=== PATIENT | female | born 1975 | race Caucasian/White ===

== ENCOUNTER 2022-05-09 20:18 | Emergency (ER) | payer OTHER, BC ==
[~2022-05-09] VITALS: Ht 147.3 cm; Wt 66.7 kg
[2022-05-09 20:31] VITALS: BP 159/79
--- NOTE | 2022-05-09 20:38 | NUR ---
pt to lobby, urine specimen collected.
--- NOTE | 2022-05-09 23:58 | NUR ---
PT TO [facility]
[2022-05-10] MEDS ORDERED: ONDANSETRON 4 MG ODT PO ONE (00:05)
[2022-05-10] MEDS ORDERED: KETOROLAC 30 MG/ML VIAL IM ONE (00:05)
--- NOTE | 2022-05-10 00:06 | NUR ---
pt reports 10/10 headache with no nausea. no additonal episodes of vomitting. bp 174/99, Dr. Diaz notified.
--- NOTE | 2022-05-10 00:10 | NUR ---
Patient being evaluated by physician at bedside.
[2022-05-10] MEDS ORDERED: DIAZ5TAB6 PO (00:22)
[2022-05-10] MEDS ORDERED: NAPR-54 PO (00:22)
--- NOTE | 2022-05-10 00:39 | NUR ---
BP REASSESSED 134/80. AWARE
--- NOTE | 2022-05-10 00:40 | NUR ---
Patient discharged with v/s stable. Written and verbal after care instructions given HEAD INJURY and explained. Patient alert, oriented and verbalized understanding of instructions. Ambulatory with steady gait. All questions addressed prior to discharge. ID band removed. Patient advised to follow up with PMD. Rx of DIAZEPAM, NAPROXEN given.
[2022-05-10 00:41] VITALS: BP 134/80
== END 2022-05-10 00:40 | disposition home or self-care (01) ==
LOC: MED 20:18
DX: S09.90XA Unspecified injury of head, initial encounter (principal); G43.909 Migraine, unspecified, not intractable, without status migrainosus; Z98.890 Other specified postprocedural states; X58.XXXA Exposure to other specified factors, initial encounter; Y93.89 Activity, other specified; Y92.89 Other specified places as the place of occurrence of the external cause; Y99.8 Other external cause status
CPT/HCPCS: 70450; 96372; 99284; J1885; Q0162

== ENCOUNTER 2023-02-23 03:35 | Emergency (ER) | payer BC, OTHER ==
[~2023-02-23] VITALS: Ht 147.3 cm; Wt 64.4 kg
[~2023-02-23 03:35] MED LIST: DIAZ5TAB6 PO; NAPR-54 PO
[2023-02-23 04:06] VITALS: BP 147/96; PULSE 78; RESP 14; TEMP 99; O2SAT 96
--- NOTE | 2023-02-23 04:08 | NUR ---
pt to bed 04 ambulatory
--- NOTE | 2023-02-23 04:11 | NUR ---
Dr. Carpenter examining patient.
--- NOTE | 2023-02-23 04:15 | NUR ---
Dr. Carpenter at evaluating pt. informed the pt and her that he would be ordered medication for her pain and vomiting. Will medicate as ordered.
[2023-02-23] MEDS ORDERED: diphenhydrAMINE 50 MG/ML VIAL IVP ONE (04:20)
[2023-02-23] MEDS ORDERED: PROCHLORPERAZINE 10 MG/2 ML VIAL IVP ONE (04:20)
[2023-02-23] MEDS ORDERED: KETOROLAC 15 MG/ML VIAL IVP ONE (04:20)
[2023-02-23] MEDS ORDERED: ACETAMINOPHEN EXTRA STRENGTH 500 MG TAB PO ONE (04:20)
--- NOTE | 2023-02-23 05:13 | NUR ---
PT sleeping without distress. Respirations even and unlabored. at BS.
--- NOTE | 2023-02-23 05:20 | NUR ---
MD. Carpenter at re-evaluated pt's status.
[2023-02-23] MEDS ORDERED: HYDR25CA1 PO (05:22)
[2023-02-23] MEDS ORDERED: ACET-8001 PO (05:22)
[2023-02-23 05:30] VITALS: BP 132/64; PULSE 83; RESP 21; TEMP 98.2; O2SAT 98
--- NOTE | 2023-02-23 05:30 | NUR ---
Patient discharged with v/s stable. Written and verbal after care instructions given and explained. Patient alert, oriented and verbalized understanding of instructions. Ambulatory with steady gait. All questions addressed prior to discharge. ID band removed. Patient advised to follow up with PMD. Rx of ASA, and Vistaril given. Patient educated on indication of medication including possible reaction and side effects. Opportunity to ask questions provided and answered. Pt instructed to return if condition worsens or to call 911 for an Emergency.
--- NOTE | 2023-02-23 06:17 | NUR ---
Note undone in EDM - 02/23/23 at 0620 by [facility] Patient discharged with v/s stable. Written and verbal after care instructions given and explained. Patient alert, oriented and verbalized understanding of instructions. Ambulatory with steady gait. All questions addressed prior to discharge. ID band removed. Patient advised to follow up with PMD. Rx of ASA, and Vistaril given. Patient educated on indication of medication including possible reaction and side effects. Opportunity to ask questions provided and answered. Pt instructed to return if condition worsens or to call 911 for an Emergency.
== END 2023-02-23 05:30 | disposition home or self-care (01) ==
LOC: MED 03:35
DX: G43.909 Migraine, unspecified, not intractable, without status migrainosus (principal); Z79.899 Other long term (current) drug therapy
CPT/HCPCS: 96374; 96375; 99284; J0780; J1200; J1885

== ENCOUNTER 2023-02-25 09:35 | Emergency (ER) | payer BC, OTHER ==
[~2023-02-25] VITALS: Ht 162.6 cm; Wt 81.6 kg
[~2023-02-25 09:35] MED LIST changes: +ACET-8001 PO; +HYDR25CA1 PO
[2023-02-25 10:00] VITALS: BP 149/100; PULSE 102; RESP 18; TEMP 98; O2SAT 98
[2023-02-25] MEDS ORDERED: NACL 0.9% 1,000 ML IV ONE (10:05)
[2023-02-25] MEDS ORDERED: diphenhydrAMINE 50 MG/ML VIAL IVP ONE (10:05)
[2023-02-25] MEDS ORDERED: PROCHLORPERAZINE 10 MG/2 ML VIAL IVP ONE (10:05)
[2023-02-25] MEDS ORDERED: ACETAMINOPHEN EXTRA STRENGTH 500 MG TAB PO ONE (10:05)
--- NOTE | 2023-02-25 10:13 | NUR ---
47 YO F PRESENTS W/HILL, NAUSEA, VOMITING, CHILLS SINCE LAST NIGHT, PT STATES SHE WAS SEEN HERE IN ED LAST MONDAY. PT DENIES INJURY. AOX4, NAD, HOB ELEVATED, SAFETY MAINTAINED. HX:MIGRAINE NKA
--- NOTE | 2023-02-25 10:14 | NUR ---
PT IN CT
--- NOTE | 2023-02-25 10:17 | NUR ---
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
[2023-02-25 10:18] VITALS: O2SAT 98
[2023-02-25] MEDS ORDERED: KETOROLAC 15 MG/ML VIAL IVP ONE (10:55)
--- NOTE | 2023-02-25 10:58 | NUR ---
SWABBED FOR ANTOINE AND FLU, WALKED TO LAB
[2023-02-25 11:02] LABS: BASOPHILS # (AUTO) 0.1 K/uL (0.00-0.22); BASOPHILS % (AUTO) 0.5 % (0.0-2.0); HEMATOCRIT 43.3 % (36-48); HEMOGLOBIN 14.9 g/dL (12.0-16.0); LYMPHOCYTES # (AUTO) 0.9 K/uL (2.5-16.5); MEAN CORPUSCULAR HEMOGLOBIN 30 pg (27-31); MEAN CORPUSCULAR HGB CONC 34 g/dL (33-37); MEAN CORPUSCULAR VOLUME 87.5 fL (80-94); MONOCYTES # (AUTO) 0.3 K/uL (0.8-1.0); MONOCYTES % (AUTO) 2.7 % (1.7-9.3); NEUTROPHILS # (AUTO) 9.1 K/uL (1.8-7.7); NEUTROPHILS % (AUTO) 87.8 % (42.2-75.2); PLATELET COUNT (AUTO) 324 K/uL (140-450); RED BLOOD CELL COUNT(AUTO) 4.95 MIL/uL (4.20-5.40); RED CELL DISTRIBUTION WIDTH 13.4 % (11.6-13.7); WHITE BLOOD COUNT (AUTO) 10.4 K/uL (4.8-10.8)
[2023-02-25] MEDS ORDERED: NIFEdipine 30 MG TABER PO ONE (11:20)
[2023-02-25] MEDS ORDERED: lisinopriL 20 MG TAB PO ONE (11:20)
[2023-02-25 11:38] LABS: ALBUMIN 4.2 g/dL (3.4-5.0); ANION GAP 14.7 (8-16); CARBON DIOXIDE 26.7 mmol/L (21-32); CREATININE 0.7 mg/dL (0.6-1.3); MAGNESIUM 2.3 mg/dL (1.8-2.4); POTASSIUM 3.4 mmol/L (3.5-5.1); THYROID STIMULATING HORMONE 0.24 uIU/mL (0.34-3.74); TOTAL BILIRUBIN 0.6 mg/dL (0.0-1.0)
[2023-02-25] MEDS ORDERED: ONDA-188 PO (12:45)
[2023-02-25] MEDS ORDERED: IBUP-1842 PO (12:45)
[2023-02-25] MEDS ORDERED: AMLO-271 PO (12:45)
== END 2023-02-25 13:00 | disposition home or self-care (01) ==
LOC: MED 09:35
DX: G43.909 Migraine, unspecified, not intractable, without status migrainosus (principal); Z20.822 Contact with and (suspected) exposure to COVID-19; I10 Essential (primary) hypertension; Z79.899 Other long term (current) drug therapy
CPT/HCPCS: 36415; 70450; 80053; 81025; 83735; 84439; 84443; 85025; 87426; 87804; 96361; 96374; 96375; 99285; J0780; J1200; J1885; J7030

== ENCOUNTER 2023-08-27 17:07 | Emergency (ER) | payer BC, OTHER ==
[~2023-08-27] VITALS: Ht 147.3 cm; Wt 63.5 kg
[~2023-08-27 17:07] MED LIST changes: +AMLO-271 PO; +IBUP-1842 PO; +ONDA-188 PO
[2023-08-27 17:15] VITALS: BP 159/102; PULSE 110; RESP 18; TEMP 98.5; O2SAT 98
[2023-08-27 17:44] VITALS: O2SAT 98
[2023-08-27] MEDS ORDERED: KETOROLAC 30 MG/ML VIAL IM ONE (17:55)
[2023-08-27] MEDS ORDERED: NACL 0.9% 1,000 ML IV ONE (17:55)
[2023-08-27 18:18] LABS: BASOPHILS # (AUTO) 0.2 K/uL (0.00-0.22); BASOPHILS % (AUTO) 1.4 % (0.0-2.0); EOSINOPHILS # (AUTO) 0.4 K/uL (0-0.4); EOSINOPHILS % (AUTO) 3.5 % (0.0-4.0); HEMATOCRIT 44.7 % (36-48); HEMOGLOBIN 15.3 g/dL (12.0-16.0); LYMPHOCYTES # (AUTO) 2.5 K/uL (2.5-16.5); LYMPHOCYTES % (AUTO) 20.4 % (20.5-51.1); MEAN CORPUSCULAR HEMOGLOBIN 30 pg (27-31); MEAN CORPUSCULAR HGB CONC 34 g/dL (33-37); MEAN CORPUSCULAR VOLUME 87.6 fL (80-94); MONOCYTES # (AUTO) 0.6 K/uL (0.8-1.0); MONOCYTES % (AUTO) 4.6 % (1.7-9.3); NEUTROPHILS # (AUTO) 8.6 K/uL (1.8-7.7); NEUTROPHILS % (AUTO) 70.1 % (42.2-75.2); PLATELET COUNT (AUTO) 276 K/uL (140-450); RED CELL DISTRIBUTION WIDTH 13.4 % (11.6-13.7); WHITE BLOOD COUNT (AUTO) 12.3 K/uL (4.8-10.8)
[2023-08-27] MEDS ORDERED: ONDANSETRON 4 MG/2 ML VIAL IVP ONE (18:20)
[2023-08-27 19:03] LABS: ANION GAP 14.9 (8-16); CALCIUM 9.1 mg/dL (8.5-10.1); CARBON DIOXIDE 24.6 mmol/L (21-32); CREATININE 0.9 mg/dL (0.6-1.3); POTASSIUM 3.5 mmol/L (3.5-5.1)
[2023-08-27 19:07] LABS: BILIRUBIN,DIRECT 0.1 mg/dL (0.0-0.3); TOTAL BILIRUBIN 0.4 mg/dL (0.0-1.0); TOTAL PROTEIN, SERUM 8.9 g/dL (6.4-8.2)
[2023-08-27 19:12] LABS: APPEARANCE,URINE CLEAR (CLEAR); BILIRUBIN,URINE NEGATIVE (NEGATIVE); BLOOD, URINE 2+ (NEGATIVE); COLOR,URINE YELLOW (YELLOW); LEUKOCYTE ESTERASE ,URINE NEGATIVE (NEGATIVE); NITRITE, URINE NEGATIVE (NEGATIVE); PROTEIN,URINE 1+ (NEGATIVE); UGLUCOSE NEGATIVE (NEGATIVE); UROBILINOGEN,URINE 0.2 EU/dL (0.2 - 1)
[2023-08-27 19:46] LABS: RBC,URINE 11-20 (MOD) /HPF (0-5); WBC,URINE 0-5 /HPF (0-5)
[2023-08-27 19:47] LABS: BACTERIA,URINE FEW /HPF (None Seen); MUCUS,URINE None Seen /LPF (None Seen); SQUAMOUS EPITHELIAL CELL,UR 0-3 (FEW) /LPF (0-3 (FEW)); TRICHOMONAS,URINE None Seen /HPF (None Seen); WHITE BLOOD CELL CASTS,URINE None Seen /LPF (None Seen); YEAST,URINE None Seen /HPF (None Seen)
[2023-08-27] MEDS ORDERED: KETOROLAC 30 MG/ML VIAL IVP ONE (21:05)
[2023-08-27] MEDS ORDERED: TAMS0.4C96 PO (21:06)
[2023-08-27] MEDS ORDERED: ONDA-188 SL (21:06)
[2023-08-27] MEDS ORDERED: IBUP-2213 PO (21:06)
[2023-08-27 21:21] VITALS: BP 171/98; PULSE 71; RESP 20; TEMP 98.2; O2SAT 98
== END 2023-08-27 21:21 | disposition home or self-care (01) ==
LOC: MED 17:07
DX: N23 Unspecified renal colic (principal); Z79.899 Other long term (current) drug therapy; Z79.1 Long term (current) use of non-steroidal anti-inflammatories (NSAID); Z88.8 Allergy status to other drugs, medicaments and biological substances; Z88.5 Allergy status to narcotic agent
CPT/HCPCS: 36415; 74177; 76830; 80048; 80076; 81001; 81025; 83690; 84703; 85025; 96361; 96372; 96374; 96375; 99285; J1885; J2405; J7030; Q0092; Q9967